=== PATIENT | female | born 1955 | race Caucasian/White ===

== ENCOUNTER 2020-02-29 18:19 | Emergency (ER) | payer MEDICARE ==
[~2020-02-29] VITALS: Ht 162.6 cm; Wt 66.9 kg
[2020-02-29 18:22] VITALS: BP 115/74
--- NOTE | 2020-02-29 19:14 | NUR ---
DOCUMENTATION LEAD: PT. TO ROOM FROM LOBBY AT THIS TIME.
[2020-02-29] MEDS ORDERED: METHOCARBAMOL 750 MG TABLET PO ONE (19:30)
[2020-02-29] MEDS ORDERED: KETOROLAC 30 MG/1 ML IM ONE (19:30)
[2020-02-29] MEDS ORDERED: KETOROLAC 30 MG/1 ML ONE (19:39)
[2020-02-29] MEDS ORDERED: METHOCARBAMOL 750 MG TABLET ONE (19:39)
== END 2020-02-29 21:04 | disposition home or self-care (01) ==
LOC: ED 21:00
DX: M54.42 Lumbago with sciatica, left side (principal); Z87.891 Personal history of nicotine dependence
CPT/HCPCS: 72110; 96372; 99283; J1885

== ENCOUNTER → 2020-04-06 | Outpatient (CLI) | payer MEDICARE | END | disposition home or self-care (01) | LOC: CFH 08:22 | PROVIDERS: ATTEND Registered Nurse | DX: R91.1 Solitary pulmonary nodule (principal); I25.10 Atherosclerotic heart disease of native coronary artery without angina pectoris | CPT/HCPCS: 71250 ==

== ENCOUNTER → 2020-05-25 | Outpatient (CLI) | payer MEDICARE ==
[~2020-05-25] MED LIST: AMINOPHYLLINE 25 MG/ML, 10ML ONE; REGADENOSON 0.4 MG/5 ML SYRINGE ONE
== END | disposition home or self-care (01) ==
LOC: CFH 08:37
PROVIDERS: ATTEND Internal Medicine Cardiovascular Disease
DX: R94.39 Abnormal result of other cardiovascular function study (principal); Z95.1 Presence of aortocoronary bypass graft
CPT/HCPCS: 78452; 93017; A9502; J0280; J2785

== ENCOUNTER → 2020-12-27 | Outpatient (CLI) | payer MEDICARE | END | disposition home or self-care (01) | LOC: CFH 13:15 | PROVIDERS: ATTEND Family Medicine | DX: R91.8 Other nonspecific abnormal finding of lung field (principal) | CPT/HCPCS: 71250 ==